=== PATIENT | female | born 1960 | race Caucasian/White ===

== ENCOUNTER → 2017-03-05 | Outpatient (CLI) | payer BC ==
--- NOTE | 2017-03-05 15:57 | US ---
EXAMINATION TYPE: US thyroid st tissue head/neck DATE OF EXAM: 03/05/2017 3:43 PM COMPARISON: NONE CLINICAL HISTORY: Thyroid nodule E04.1. Pt states Dr may have felt nodule on examination GLAND SIZE: Right Lobe: 4.2 x 1.2 x 1.8 cm Overall Parenchyma: homogenous Left Lobe: 3.9 x 1.3 x 1.7 cm Overall Parenchyma: homogeneous Isthmus Thickness: 0.3 cm NODULES RIGHT: # of nodules measured on right: 0 LEFT: # of nodules measured on left: 0 ISTHMUS: # of nodules measured in the isthmus: 0 Bilateral neck scanned, no evidence of lymphadenopathy/ Bilateral thyroid gland appeared wnl IMPRESSION: 1. Normal thyroid
== END | disposition home or self-care (01) ==
LOC: RADUSWWP 15:32
PROVIDERS: ATTEND Family Medicine
DX: E04.1 Nontoxic single thyroid nodule (principal)
CPT/HCPCS: 76536

== ENCOUNTER 2017-11-29 07:36 | Day surgery (SDC) | payer BC ==
[2017-11-25 15:49] VITALS: BMI 43.7
[~2017-11-29 07:36] MED LIST: ALPRAZolam 0.25 MG TAB PO PRN; ALPRAZolam 0.5 MG TAB PO PRN; ASPIRIN 325 MG TAB PO STA; ATORVASTATIN 80 MG TAB PO STA; NITROGLYCERIN SL TABS 0.4 MG TAB SUBLINGUAL PRN; SODIUM CHLORIDE 0.9% 1,000 ML in EMPTY BAG 1 BAG IV ONE
[2017-11-29 07:58] VITALS: RESP 16
[2017-11-29 08:11] LABS: Glucose,Whole Blood 303 mg/dL (75-99)
[2017-11-29 08:23] VITALS: TEMP 98
[2017-11-29] MEDS ORDERED: ISOSORBIDE MONONITRATE ER 30 MG TAB.ER.24H PO STA (08:25)
[2017-11-29] MEDS ORDERED: LOSARTAN 50 MG TAB PO STA (08:25)
[2017-11-29] MEDS ORDERED: INSULIN ASPART 100 UNIT/ML 1 ML 10 ML VIAL SQ SCH (08:28)
[2017-11-29] MEDS ORDERED: LIDOCAINE 2% INJ 20 MG/ML (20 ML MDV) ONE (08:36)
[2017-11-29] MEDS ORDERED: VERAPAMIL 2.5 MG/ML 2 ML AMP ONE (08:37)
[2017-11-29] MEDS ORDERED: MIDAZOLAM 2 MG/2 ML VIAL ONE (08:53)
[2017-11-29] MEDS: MIDAZOLAM 2 MG/2 ML VIAL IV ONE ×2 (08:55→08:58)
[2017-11-29] MEDS ORDERED: HYDROCHLOROTHIAZIDE 25 MG TAB PO SCH (09:00)
[2017-11-29] MEDS ORDERED: LIDOCAINE 2% INJ 20 MG/ML SQ ONE (09:01)
[2017-11-29] MEDS ORDERED: HEPARIN SODIUM 1,000 UN/ML (10ML VL) ONE (09:02)
[2017-11-29] MEDS ORDERED: VERAPAMIL SYRINGE (5 MG/10 ML) INTRAARTER ONE (09:03)
[2017-11-29] MEDS ORDERED: RX INFO: IV CONTRAST WAS GIVEN 1 EACH MISC MISCELLANE PRN (09:19)
[2017-11-29] MEDS ORDERED: IOHEXOL 350 MG/ML 125ML BOTTLE INJ ONE (09:21)
[2017-11-29] MEDS ORDERED: SODIUM CHLORIDE 0.9% 1,000 ML IV SCH (09:30)
[2017-11-29 09:35] LABS: Glucose,Whole Blood 342 mg/dL (75-99)
--- NOTE | 2017-11-29 09:53 | CC ---
CARDIAC CATHETERIZATION REPORT DATE OF SERVICE: 11/29/2017 PERFORMING PHYSICIAN: Lucien Handley MD, transport rn. PROCEDURE PERFORMED: 1. Selective right and left coronary angiogram. 2. Left heart catheterization. APPROACH: Right radial artery. COMPLICATION: None. LEVEL OF SEDATION: Moderate with sedation length of 14 minutes. PROCEDURE DESCRIPTION: After obtaining an informed consent, the patient was brought to the cardiac cheesemaking laborer. The right radial artery was cannulated using micropuncture technique, the micropuncture wire passed easily then I placed a 6-Hebrew sheath in the right radial artery. After that, I did selective right and left coronary angiogram using JR4 and JL3.5 catheters. The left heart catheterization was performed using the JR4 catheter which flipped into the LV and then I did a pullback after flushing the catheter. The procedure was completed without any complication. SELECTIVE CORONARY ANGIOGRAM: 1. The RCA is a large caliber vessel and it is a dominant vessel. The RCA has mild disease in the proximal portion. Distally bifurcates into PDA and PLV branches, both are angiographically normal. 2. The left main has mild disease only. It bifurcates into left circumflex and left anterior descending artery. 3. The left circumflex is a large caliber vessel. It is a nondominant vessel. The proximal circumflex appeared to be angiographically normal. The mid circumflex has mild disease only, appeared to be in the range of 20% and gives rise into the first and second obtuse marginal branches, both are angiographically normal. The circumflex distally appeared to be angiographically normal. Gives rise into a PDA branch which appeared to have mild disease only. 4. The LAD, the proximal LAD appeared to be angiographically normal and gives rise into a diag branch, which is a moderate caliber vessel and has mild disease only. The mid LAD appeared to be angiographically normal. The LAD distally appeared to be a small to medium caliber vessel with mild diffuse disease. HEMODYNAMICS: The left ventricular end-diastolic pressure was 16 mmHg and no gradient was identified across the aortic valve. CONCLUSION: Mild triple-vessel coronary artery disease. POSTPROCEDURE MANAGEMENT: Maximize medical treatment and follow up with the patient. MMODL / IJN: [id number] /
[2017-11-29] MEDS ORDERED: HYDROmorphone 1 MG/ML 1 ML SYRINGE IVP STA (09:59)
--- NOTE | 2017-11-29 09:59 | LTR ---
DATE OF SERVICE: 11/29/2017 RE: Fallon Alfredo Dear Lewis; Ms. Fallon Alfredo underwent a myocardial perfusion imaging and that revealed an anterior ischemia. Subsequently, she underwent a heart catheterization and that showed mild triple-vessel coronary artery disease. Maximize medical treatment is recommended at this point of time. I want to thank you again for allowing me to participate in her care. Sincerely, MD ALEXEY Castellanos / NHI: [id number] /
[2017-11-29 11:29] LABS: Glucose,Whole Blood 219 mg/dL (75-99)
[2017-11-29] MEDS ORDERED: ACETAMINOPHEN TAB 325 MG TAB ONE (12:35)
[2017-11-29 14:07] LABS: Glucose,Whole Blood 119 mg/dL (75-99)
[2017-11-29 15:16] VITALS: BP 130/70; PULSE 69
== END 2017-11-29 14:40 | disposition home or self-care (01) ==
LOC: CATHCVL 07:36
PROVIDERS: ATTEND Internal Medicine Interventional Cardiology
DX: I25.110 Atherosclerotic heart disease of native coronary artery with unstable angina pectoris (principal); R94.39 Abnormal result of other cardiovascular function study; I10 Essential (primary) hypertension; E78.5 Hyperlipidemia, unspecified; E11.9 Type 2 diabetes mellitus without complications; Z82.49 Family history of ischemic heart disease and other diseases of the circulatory system; Z79.84 Long term (current) use of oral hypoglycemic drugs; Z79.82 Long term (current) use of aspirin; Z79.4 Long term (current) use of insulin; Z79.899 Other long term (current) drug therapy; Z87.891 Personal history of nicotine dependence
CPT/HCPCS: 93458; J2001; J2250; J1170; J1644; Q9967

== ENCOUNTER 2019-02-18 09:02 | Day surgery (SDC) | payer BC ==
[2019-02-17 08:37] VITALS: BMI 43.4
[~2019-02-18 09:02] MED LIST changes: -ALPRAZolam 0.25 MG TAB PO PRN; -ALPRAZolam 0.5 MG TAB PO PRN; -ASPIRIN 325 MG TAB PO STA; -ATORVASTATIN 80 MG TAB PO STA; +LACTATED RINGERS 1,000 ML IV SCH; -NITROGLYCERIN SL TABS 0.4 MG TAB SUBLINGUAL PRN; -SODIUM CHLORIDE 0.9% 1,000 ML in EMPTY BAG 1 BAG IV ONE
[2019-02-18 09:18] VITALS: TEMP 97.2
[2019-02-18] MEDS ORDERED: PROPOFOL 10 MG/ML 20 ML VIAL IV ONE (09:34)
[2019-02-18 09:35] LABS: Glucose,Whole Blood 195 mg/dL (75-99)
--- NOTE | 2019-02-18 09:53 | P.PCN ---
Date of Procedure: 02/18/19 Procedure(s) Performed: Brief history: Patient is a pleasant 58-year-old white female, scheduled for an elective upper endoscopy as well as colonoscopy as a part of evaluation of epigastric pain and heartburn of several months duration. She is also scheduled for colonoscopy as a part of screening for colorectal neoplasia. Last colonoscopy was 10 years ago. Procedure performed: Esophagogastroduodenoscopy with biopsy Colonoscopy Preoperative diagnosis: GERD Screening for colon cancer Anesthesia: [facility] [place] Procedure: After informed consent was obtained from the patient was brought into the endoscopy unit and IV sedation was administered by anesthesia under continuous monitoring. Initially upper endoscopy was done. The Olympus GF 160 video endoscope was inserted inserted into the mouth and esophagus intubated without any difficulty and was gradually advanced into the stomach and duodenum and carefully examined. The bulb and second part of the duodenum appeared normal. The scope was then withdrawn into the stomach adequately insufflated with air and upon careful examination the antrum had mild diffuse antral gastritis and biopsies were done from this area. The body, cardia and fundus appeared normal. The scope was then withdrawn into the esophagus. The GE junction was located at 40 cm to the incisors. It appeared regular with no erythema erosions or ulcerations. Rest of the esophagus appeared normal. Patient tolerated the procedure well. At this time the patient continued to remain sedation. Initial digital rectal examination was normal. Olympus CF 160 video colonoscope was then inserted into the rectum and gradually advanced to the cecum without any difficulty. Careful examination was performed as the scope was gradually being withdrawn. The prep was excellent. The cecum, ascending colon, transverse colon, descending colon, sigmoid colon and rectum appeared normal. Retroflexion was performed in the rectum and no lesions were noted. Patient tolerated the procedure well. Impression: 1. Upper endoscopy revealed mild diffuse antral gastritis but no evidence of esophagitis or peptic ulcer disease 2. Colonoscopy was within normal limits with no evidence of colitis or colorectal neoplasia Recommendations: Findings of this examination were discussed with the patient as well as her family. She was advised to follow with the biopsy results. she was advised to have a repeat screening colonoscopy in 10 years.
[2019-02-18 10:06] LABS: Glucose,Whole Blood 211 mg/dL (75-99)
[2019-02-18 10:07] VITALS: RESP 16
[2019-02-18 10:28] VITALS: BP 122/75; PULSE 65
== END 2019-02-18 10:57 | disposition home or self-care (01) ==
LOC: ORWHC2ENDO 09:02
PROVIDERS: ATTEND Internal Medicine Gastroenterology
DX: Z12.11 Encounter for screening for malignant neoplasm of colon (principal); K29.50 Unspecified chronic gastritis without bleeding; Z88.8 Allergy status to other drugs, medicaments and biological substances; I10 Essential (primary) hypertension; E78.5 Hyperlipidemia, unspecified; I34.1 Nonrheumatic mitral (valve) prolapse; E11.9 Type 2 diabetes mellitus without complications; K21.9 Gastro-esophageal reflux disease without esophagitis; Z79.899 Other long term (current) drug therapy
CPT/HCPCS: 88305; 43239; J2704; G0121

== ENCOUNTER → 2019-06-29 | Outpatient (CLI) | payer BC ==
[2019-06-29 10:49] LABS: Basophils % (A) 1 %; Eosinophils # (A) 0.2 k/uL (0-0.7); Eosinophils % (A) 3 %; HCT 45.9 % (34.0-46.0); Lymphocytes % (A) 32 %; MCH 30.2 pg (25.0-35.0); MCHC 32.7 g/dL (31.0-37.0); MCV 92.3 fL (80.0-100.0); Mean Platelet Volume 6.3; Monocytes # (A) 0.3 k/uL (0-1.0); Monocytes % (A) 5 %; Neutrophils # (A) 3.6 k/uL (1.3-7.7); Neutrophils % (A) 57 %; Platelet Count 266 k/uL (150-450); RBC 4.97 m/uL (3.80-5.40); RDW 12.8 % (11.5-15.5); WBC 6.2 k/uL (3.8-10.6)
[2019-06-29 17:31] LABS: African American GFR (CKD) 109.1 (60.0-200.0); Albumin 4.5 g/dL (3.80-4.90); Albumin/Globulin Ratio 2.37 (1.60-3.17); Anion Gap 7.5 mmol/L (4.00-12.00); BUN/Creat Ratio 27.14 Ratio (12.00-20.00); Calcium 9.5 mg/dL (8.7-10.3); Carbon Dioxide 30.5 mmol/L (21.6-31.8); Chol/HDL Ratio 3.61; Globulin 1.9 g/dL (1.6-3.3); LDL Cholesterol,Calculated 83.4 mg/dL (0.0-131.0); Non-African American GFR(CKD) 94.2 (60.0-200.0); Potassium 4.6 mmol/L (3.5-5.5); Total Bilirubin 0.6 mg/dL (0.2-1.2); Total Protein 6.4 g/dL (6.2-8.2); VLDL Calculation 31.6 mg/dL (5.00-40.00)
== END | disposition home or self-care (01) ==
LOC: LABWHC1 09:32
PROVIDERS: ATTEND Nurse Practitioner Adult Health
DX: E78.2 Mixed hyperlipidemia (principal)
CPT/HCPCS: 36415; 80053; 80061; 82550; 85025

== ENCOUNTER → 2020-04-08 | Outpatient (CLI) | payer BC ==
--- NOTE | 2020-04-08 08:22 | US ---
EXAMINATION TYPE: US liver DATE OF EXAM: 04/08/2020 COMPARISON: US 2012 CLINICAL HISTORY: K76.0 Fatty (change of) liver, R91.8 nodules. Intermittent RUQ pain x couple years, occasional nausea, history of cholecystectomy EXAM MEASUREMENTS: Liver Length: 21.4 cm Gallbladder Wall: surgically absent CBD: 0.5 cm Right Kidney: 11.3 x 4.6 x 5.4 cm Pancreas: visualized portions wnl, limited by overlying bowel gas Liver: enlarged, attenuating, heterogeneous, increased echogenicity. Heterogeneity limits evaluation for underlying hepatic masses. No focal hepatic mass seen on today's examination. Gallbladder: surgically absent Evidence for sonographic Olguin's sign: no CBD: wnl Right Kidney: wnl IMPRESSION: Sonographic findings most commonly related to hepatic steatosis. Correlate with liver fun ction tests.
--- NOTE | 2020-04-08 09:20 | CT ---
EXAMINATION TYPE: CT chest wo con DATE OF EXAM: 04/08/2020 COMPARISON: None HISTORY: Abnormal findings of lung CT DLP: 471.00 mGycm, Automated exposure control for dose reduction was used. CONTRAST: Performed injected with 0 mL of Isovue 300. TECHNIQUE: Axial images were obtained at 5 mm thick sections. Reconstructed images are reviewed on [employer] computer in the coronal plane. FINDINGS: Portion of the thyroid visualized is normal. There is a small area of pneumonitis at the right apex measuring 0.6 cm. Series 4 image 10. There is a 0.5 cm nodule in the periphery of the right upper lung field. More anteriorly a 0.6 cm nod ule is present. Series 4 image 16. There is a 0.4 cm nodule within the periphery of the right midlung. Series 4 image 24. Small area of pneumonitis is in the anterior medial right middle lobe measures 0.7 cm. Series 4 image 25. A subtle nodules within the right middle lobe adjacent to some vasculature measuring 0.4 cm. Series 4 image 27. Calcified granuloma measuring 0.4 cm is in the posterior lateral right lung. Series 4 image 33. There is a small nodule in the periphery of the right lower lobe measuring 0.5 cm. Series 4 image 34. There is a 0.5 cm nodule in the posterior lateral right lung base. Series 4 image 42. There are 2 small nodules within the posterior left lung base measuring 0.6 cm and 0.4 cm. Series 4 i mages 54-55. A 0.5 cm nodules within the left lung base. Series 4 image 41. A punctate 0.2 cm nodules within the periphery of the left upper lobe. Series 4 image 12. No enlarged mediastinal or hilar adenopathy is evident. The ascending aorta diameter at the level o f the main pulmonary artery is 3.5 cm. The main pulmonary artery diameter at the bifurcation is 3.3 cm. Coronary artery calcification is present. Limited CT sections are obtained through the upper abdomen. There is fatty infiltration to the liver. IMPRESSIONS: 1. Multiple bilateral pulmonary nodules discussed above. Findings are nonspecific. These could be gra nuloma or metastasis. For high-risk patients, follow-up CT chest in 3-6 months is recommended.
== END | disposition home or self-care (01) ==
LOC: RADUSWWP 07:16
PROVIDERS: ATTEND Family Medicine
DX: R91.8 Other nonspecific abnormal finding of lung field (principal); K76.0 Fatty (change of) liver, not elsewhere classified
CPT/HCPCS: 71250; 76705

== ENCOUNTER → 2021-03-04 | Outpatient (CLI) | payer BC ==
[2021-03-04 11:19] LABS: Basophils # (A) 0.04 X 10*3/uL (0.00-0.10); Basophils % (A) 0.6 %; Eosinophils # (A) 0.15 X 10*3/uL (0.04-0.35); Eosinophils % (A) 2.4 %; HCT 48.3 % (37.2-46.3); HGB 15.6 g/dL (12.0-15.0); Lymphocytes # (A) 1.97 X 10*3/uL (0.90-5.00); Lymphocytes % (A) 31.1 %; MCH 29.1 pg (27.0-32.0); MCHC 32.3 g/dL (32.0-37.0); MCV 89.9 fL (80.0-97.0); Mean Platelet Volume 9.1 fL (9.5-12.2); Monocytes # (A) 0.54 X 10*3/uL (0.20-1.00); Monocytes % (A) 8.5 %; Neutrophils # (A) 3.62 X 10*3/uL (1.80-7.70); Neutrophils % (A) 57.2 %; Platelet Count 312 X 10*3/uL (140-440); RBC 5.37 X 10*6/uL (4.10-5.20); RDW 11.9 % (11.5-14.5); WBC 6.33 X 10*3/uL (4.50-10.00)
[2021-03-04 11:41] LABS: T4, Free (Free Thyroxine) 1.2 ng/dL (0.80-1.80)
[2021-03-04 12:18] LABS: African American GFR (CKD) 107.6 (60.0-200.0); Albumin 4.8 g/dL (3.80-4.90); Albumin/Globulin Ratio 2.53 (1.60-3.17); Anion Gap 9.1 mmol/L (4.00-12.00); BUN/Creat Ratio 25.71 Ratio (12.00-20.00); Calcium 9.4 mg/dL (8.7-10.3); Carbon Dioxide 29.9 mmol/L (21.6-31.8); Chol/HDL Ratio 4.2; Globulin 1.9 g/dL (1.6-3.3); Non-African American GFR(CKD) 92.9 (60.0-200.0); Total Bilirubin 0.4 mg/dL (0.2-1.2); Total Protein 6.7 g/dL (6.2-8.2); Uric Acid 5.2 mg/dL (2.9-7.7)
[2021-03-04 12:55] LABS: C Reactive Protein 0.4 mg/dL (0.0-0.8)
[2021-03-04 13:20] LABS: Erythrocyte Sedimentation Rate 6 mm/Hr (0-30)
[2021-03-04 15:02] LABS: Hemoglobin A1C 7.3 % (4.0-6.0)
[2021-03-06 12:02] LABS: HLA B27 NEGATIVE
== END | disposition home or self-care (01) ==
LOC: LABMAIN 07:56
PROVIDERS: ATTEND Family Medicine
DX: R69 Illness, unspecified (principal)
CPT/HCPCS: 36415; 80053; 80061; 82550; 83036; 84439; 84443; 84550; 85025; 85652; 86038; 86140; 86431; 86812